=== PATIENT | male | born 1980 | race Caucasian/White ===

== ENCOUNTER 2022-06-18 09:14 | Emergency (ER) | payer OTHER ==
[~2022-06-18] VITALS: Ht 182.9 cm; Wt 86.2 kg
[2022-06-18 09:37] VITALS: BP 138/93
[2022-06-18] MEDS ORDERED: PRAZ2 PO ×2 (09:39→10:10)
[2022-06-18] MEDS ORDERED: VRAYLAR4.5 MG PO ×2 (09:39→10:09)
[2022-06-18] MEDS ORDERED: VENLAFAXINE HC225 MG PO (09:40)
[2022-06-18] MEDS ORDERED: Atarax10 MG PO (09:40)
[2022-06-18] MEDS ORDERED: TRAZ50 PO ×2 (09:40→10:10)
[2022-06-18] MEDS ORDERED: AMPDEX30CR (09:41)
[2022-06-18] MEDS ORDERED: HYDHCL25 PO (10:09)
[2022-06-18] MEDS ORDERED: VENL75ER PO (10:10)
== END 2022-06-18 10:45 | disposition home or self-care (01) ==
LOC: ER 09:14
DX: Z76.0 Encounter for issue of repeat prescription (principal); Z79.899 Other long term (current) drug therapy
CPT/HCPCS: 99281